=== PATIENT | female | born 1950 | race Caucasian/White ===

== ENCOUNTER → 2019-03-08 | Outpatient (CLI) | payer OTHER, MEDICARE | LOC: ULTRA 08:49 | DX: I65.22 Occlusion and stenosis of left carotid artery (principal); I25.10 Atherosclerotic heart disease of native coronary artery without angina pectoris; M48.10 Ankylosing hyperostosis [Forestier], site unspecified; E78.5 Hyperlipidemia, unspecified; Z88.0 Allergy status to penicillin ==

== ENCOUNTER → 2020-10-17 | Outpatient (CLI) | payer OTHER, MEDICARE | LOC: SJCVC 13:19 | PROVIDERS: ATTEND Internal Medicine | DX: R93.1 Abnormal findings on diagnostic imaging of heart and coronary circulation (principal); I49.1 Atrial premature depolarization; E78.5 Hyperlipidemia, unspecified; R55 Syncope and collapse; M81.0 Age-related osteoporosis without current pathological fracture; E78.00 Pure hypercholesterolemia, unspecified; Z79.899 Other long term (current) drug therapy; Z72.89 Other problems related to lifestyle; Z88.0 Allergy status to penicillin; Z88.1 Allergy status to other antibiotic agents ==